=== PATIENT | female | born 1945 | race Caucasian/White ===

== ENCOUNTER 2019-10-07 15:37 | Observation (INO) | payer MEDICARE ==
[2019-10-07 17:32] VITALS: BMI 28.9
[2019-10-07] MEDS ORDERED: Nitroglycerin 0.4 MG TAB (25 Tab Bottle) PO PRN (18:47)
[2019-10-07] MEDS ORDERED: Acetaminophen 325 MG TAB PO PRN (18:52)
[2019-10-07] MEDS ORDERED: Acetaminophen 650 MG Suppository PR PRN (18:52)
[2019-10-07] MEDS ORDERED: hydrALAZINE 20 MG/ML VIAL SLOW IVP PRN (19:10)
[2019-10-07 19:43] LABS: #Basophils 0.1 thou/uL (0.0-0.2); #Eosinphils 0.1 thou/uL (0.0-0.7); #Monocytes 0.5 thou/uL (0.11-0.59); #Neutrophils 3.2 thou/uL (1.40-6.50); %Basophils 1.1 % (0.0-1.0); %Eosinophils 1.6 % (0.0-10.0); %Lymphocytes 43.8 % (21.0-51.0); %Monocytes 6.6 % (0.0-10.0); %Neutrophils 46.9 % (42.0-75.0); Hemoglobin 14.2 g/dL (12.0-16.0); Mean Corpuscular HGB CONC 33.8 g/dL (32.0-36.0); Mean Corpuscular Hemoglobin 29.8 pg (27.0-31.0); Mean Corpuscular Volume 88.1 fL (78.0-98.0); Mean Platelet Volume 8.5 fL (7.4-10.4); Platelet Count 289 thou/uL (130-400); RBC Distribution Width 12.7 % (11.5-14.5); Red Blood Cell (RBC) Count 4.76 mill/uL (4.20-5.40); White Blood Cell (WBC) Count 6.8 thou/uL (4.8-10.8)
--- NOTE | 2019-10-07 19:58 | HP ---
TIME OF ASSESSMENT: 1700 hours. CHIEF COMPLAINT: Chest pain. HISTORY OF PRESENT ILLNESS: Ms. Alejo is a 74-year-old woman with past medical history of coronary artery disease, CABG, stents x3, hypertension, and CVA, who presents with complaints of intermittent chest pain for the last 5 to 6 days. The patient states she tends to be exacerbated following activity. This is typically after she has been walking around for some time. She states it has become more frequent, prompting her to contact Dr. Mathis, her wind turbine controls engineer yesterday. He recommended Pepcid. Therefore, she states that she felt he likely thought it was indigestion. However, she had another episode of pain, which she states was more severe, rating it a 7/10 in severity and substernal, lasting a few minutes. The patient states it happened while she was sitting in a chair yesterday evening and does not recall the time of day or how long it lasted. She states it radiated 3 inches to the left and then 2 inches to the right side of her chest before settling. She states it felt almost as if it was spasming. The patient states she had another episode of pain earlier today after walking from her car to the service station to pay the center aisle cashier and then back to her car and then into the pharmacy. She states the pain was less intense and rated a 5/10 in severity again in the center of her chest radiating through to her back. She states it resolved after a few minutes on its own, but she checked her blood pressure and it was elevated in the 150s with a heart rate in the 50s. The patient opted to come into the emergency department and on arrival was noted to be hypertensive with a blood pressure of 201/81. The patient was seen at [facility] [place] in [place] [facility]. She had an EKG done, which showed normal sinus rhythm with no ST changes or T-wave abnormalities. She was seen by Dr. Wolfe who interpreted the EKG. She underwent laboratory studies, which were said to be unremarkable including a troponin that was within normal limits. The troponin was checked at 1421 hours. She was given 81 mg of aspirin x4 tablets. It does not appear she underwent any chest x-ray imaging. However, she was transferred for further workup and monitoring. Of note, the patient states Dr. Mathis had recommended an echo to be done soon, but has not yet been scheduled. She states it has been over a year since her last stress test, but is very concerned about having one done as she is afraid it will induce an TN and therefore wishes to be seen by Dr. Mathis before undergoing any type of stress test. REVIEW OF SYSTEMS: At this present time, the patient states she is pain free. She does report having some associated shortness of breath, however, is a poor historian and unable to state if the shortness of breath is exacerbated by activity. She states she has some level shortness of breath at baseline, but does feel that at times when the pain has come on, strongly it takes away her breath. Reports having a cough for the last couple of days that is nonproductive. Denies any hemoptysis. Denies any lower leg swelling or edema. States she has been choking on her saliva, but denies having any issues with her swallowing or issues with aspiration when eating or drinking. Has not had any recent fevers, chills, or sweats. All other review of systems are negative. PAST MEDICAL HISTORY: 1. Coronary artery disease. 2. Hypertension. 3. Myocardial infarction. PAST SURGICAL HISTORY: 1. CABG. 2. Stents x3. 3. Hysterectomy. FAMILY HISTORY: The patient reports strong family history of heart disease in her father. SOCIAL HISTORY: The patient lives alone and is fully independent, and denies any tobacco use, alcohol consumption, or illicit drug use. PHYSICAL EXAMINATION: GENERAL: The patient appears well developed and well nourished. She is in no acute distress. VITAL SIGNS: Temperature 98.4, pulse 54, respirations 20, O2 saturation 98% on room air, blood pressure 168/102. HEENT: Normocephalic and atraumatic. Pupils are equal, round, and reactive to light. Sclerae without icterus. Oropharynx is clear. NECK: Supple without lymphadenopathy. LUNGS: Clear to auscultation bilaterally without wheezes, rales, or rhonchi. CARDIAC: Regular rate and rhythm without audible murmurs or gallops. No reproducible chest wall tenderness. LUNGS: Notable for crackles at the right lower lung base. ABDOMEN: Soft, nontender, nondistended. Normoactive bowel sounds present. No guarding or rigidity. No renal angle tenderness. EXTREMITIES: No lower leg swelling or edema. NEUROLOGIC: Alert and oriented x3. No neuro deficits on exam. SKIN: Warm and dry. INVESTIGATIONS: As mentioned above in HPI. IMPRESSION AND PLAN: Ms. Alejo is a pleasant 74-year-old woman, presenting with chest pain, who has multiple risk factors including extensive cardiac history as mentioned above in history of present illness. She has had coronary artery bypass graft as well as stents x3 and a myocardial infarction in her late 30s. The patient is known to Dr. Mathis and has been admitted for the followin. Atypical/persistent chest pain. The patient underwent EKG at outside facility, which was read as normal. We will repeat an EKG here as I do not see an EKG in her chart. We will continue to trend troponins. We will obtain a stat troponin at this present time. We will check lipid panel with morning labs. We will check CBC, CMP, magnesium, and TSH as well. We do not have results from the laboratory studies done outside. We will also obtain a baseline chest x-ray, which does not appear to have been done. We will add on a BNP as well. Consult placed to Dr. Mathis per the patient's request as she does not wish to undergo any stress test until cleared by him. Echocardiogram also requested as the patient states she is due for one soon and has not scheduled that yet. 2. Cough. The patient with excessive cough during her examination and states she has had a significant cough for the last 2 days, which is dry. We will follow up on results of the chest x-ray and as mentioned above, did have some crackles at the right lung base. BMP added. The patient does take Lasix at home and has no lower extremity edema at present. She will be kept n.p.o. after midnight. Awaiting Cardiology recommendations in the event that she does undergo a stress test or catheterization. We will plan to give very gentle hydration. We will hold IV fluids pending results of BMP and chest x-ray. Echocardiogram has been ordered. 3. Hypertension. The patient with elevated blood pressure outside ED. Currently, 168 systolic. We will resume antihypertensives once verified and continue to monitor blood pressure. 4. Gastrointestinal prophylaxis with famotidine. 5. Deep venous thrombosis prophylaxis. The patient is ambulatory. Mechanical sequential compression devices ordered. 6. Code status full. Surrogate decision maker is her son, Ruben Sevilla. The patient's case discussed with attending who agrees with plan of care as described above. Job ID: [id number]
[2019-10-07 20:09] LABS: ALT (SGPT) 15 U/L (8-55); AST (SGOT) 18 U/L (5-34); Albumin 4.3 g/dL (3.4-4.8); Alkaline Phosphatase 99 U/L (40-110); Anion Gap 13 mmol/L (10-20); BUN (Urea Nitrogen) 12 mg/dL (9.8-20.1); Bilirubin, Total 0.3 mg/dL (0.2-1.2); Calc. Creatinine Clearance 65 mL/min (70-130); Calcium 9.4 mg/dL (7.8-10.44); Carbon Dioxide 28 mmol/L (23-31); Chloride 103 mmol/L (98-107); Estimated GFR-MDRD 55; Globulin 2.9 g/dL (2.4-3.5); Glucose 140 mg/dL (83-110); Lipase 56 U/L (8-78); Magnesium 2.3 mg/dL (1.6-2.6); Potassium 4.4 mmol/L (3.5-5.1); Protein, Total 7.2 g/dL (6.0-8.3); Sodium 140 mmol/L (136-145)
--- NOTE | 2019-10-07 20:30 | RAD ---
TWO VIEW CHEST: 10/07/19 HISTORY: Chest pain, shortness of breath. COMPARISON: 09/09/13. The lungs appear well aerated and clear. No infiltrate or vascular congestion. Heart size is within n ormal range. Postop sternotomy changes are noted. Osseous structures are unremarkable. IMPRESSION: No acute findings. POS: [facility]
[2019-10-07] MEDS: Famotidine 20 MG TAB PO SCH (20:45)
[2019-10-07] MEDS ORDERED: Famotidine/PF 20 mg/2ml Vial SLOW IVP SCH (21:00)
[2019-10-07] MEDS: Sodium Chloride 0.9% 1,000 ML IV SCH (23:35)
[2019-10-08 04:48] LABS: #Basophils 0.1 thou/uL (0.0-0.2); #Eosinphils 0.1 thou/uL (0.0-0.7); #Lymphocytes 2.8 thou/uL (1.20-3.40); #Monocytes 0.6 thou/uL (0.11-0.59); %Basophils 0.9 % (0.0-1.0); %Eosinophils 1.7 % (0.0-10.0); %Lymphocytes 43.2 % (21.0-51.0); %Monocytes 8.3 % (0.0-10.0); %Neutrophils 45.9 % (42.0-75.0); Hemoglobin 13.7 g/dL (12.0-16.0); Mean Corpuscular HGB CONC 33.2 g/dL (32.0-36.0); Mean Corpuscular Hemoglobin 29.6 pg (27.0-31.0); Mean Platelet Volume 8.7 fL (7.4-10.4); Platelet Count 276 thou/uL (130-400); RBC Distribution Width 12.7 % (11.5-14.5); Red Blood Cell (RBC) Count 4.64 mill/uL (4.20-5.40); White Blood Cell (WBC) Count 6.6 thou/uL (4.8-10.8)
[2019-10-08 05:16] LABS: Anion Gap 12 mmol/L (10-20); BUN (Urea Nitrogen) 18 mg/dL (9.8-20.1); Calc. Creatinine Clearance 73 mL/min (70-130); Carbon Dioxide 27 mmol/L (23-31); Cardiac Risk 6.7 (Less than 4.5); Chloride 106 mmol/L (98-107); Cholesterol 234 mg/dl (< 200 Desired); Estimated GFR-MDRD 61; Glucose 100 mg/dL (83-110); HDL Cholesterol 35 mg/dL (>60 Neg Risk); LDL Cholesterol, Calculated 150 mg/dL; Potassium 4.2 mmol/L (3.5-5.1); Sodium 141 mmol/L (136-145); Triglycerides 243 mg/dL (Less than 150)
[2019-10-08] MEDS: Famotidine 20 MG TAB PO SCH (08:35)
[2019-10-08 13:06] VITALS: TEMP 97.6
--- NOTE | 2019-10-08 13:07 | NM ---
EXAM: Nuclear medicine cardiac perfusion examination with ejection fraction HISTORY: Chest pain TECHNIQUE: Rest images: 10.2 mCi technetium 99m sestamibi Stress images: 32.2 mCi of technetium 9M sestamibi; Adenosine COMPARISON: None FINDINGS: Tomographic images: No fixed or reversible perfusion defects. Gated images: Normal wall motion and ejection fraction of 67%. EDV: 76 mL LHR: 0.4 TID: 1.2 IMPRESSION: No evidence of ischemia
[2019-10-08] MEDS ORDERED: Furosemide 40 MG TAB PO PRN (14:03)
[2019-10-08 14:26] VITALS: BP 169/74
[2019-10-08] MEDS: Sodium Chloride 0.9% 1,000 ML IV SCH (14:34)
[2019-10-08] MEDS ORDERED: ADENOSINE 60 MG/20 ML VIAL ONE (15:00)
--- NOTE | 2019-10-08 15:08 | DIS ---
DATE OF ADMISSION: 10/07/2019 DATE OF DISCHARGE: 10/08/2019 PRIMARY CARE PHYSICIAN: She denies having one. DISPOSITION: Discharged home. FINAL DIAGNOSES: Noncardiac chest pain, coronary artery disease, hypertension, dyslipidemia. DISCHARGE MEDICATIONS: 1. Pepcid complete one a day. 2. Nitroglycerin 0.4 mg sublingual q.5 minutes p.r.n. 3. Diovan 80 mg a day. 4. Plavix 75 mg a day. 5. Aspirin 325 mg a day. 6. Lasix 40 mg a day. . ALLERGIES: TO BENADRYL, BELLERGAL, CORTISONE, ERGOTAMINE, HYDROCORTISONE, PHENOBARBITAL, PROPOXYPHENE. DIET: Heart healthy. CODE STATUS: Full. PENDING AT THE TIME OF DISCHARGE: Nothing. HOSPITAL COURSE: The patient admitted, reports of frequent pains in her chest. She went to [facility]. She had a normal EKG. She was sent here for further testing. Her CBC was normal x2. Comp metabolic profile normal, except for a blood sugar 140. Cardiac enzymes normal. Nuclear Medicine stress test showed no evidence for ischemia. Cholesterol studies were abnormal with a cholesterol 234, LDL 150, HDL 35. She is not on statin, states she has profound muscle weakness with statins. Results of her stress tests were related to Dr. Mathis. He had echocardiogram done, which by the way is pending at the time of discharge. He has stated that he will arrange followup with her. She has been advised to see a PCP for followup in 3 days. Job ID: [id number] [facility]
[2019-10-09] MEDS ORDERED: Aspirin 325 mg Enteric Coated Tablet PO SCH (09:00)
[2019-10-09] MEDS ORDERED: Valsartan 80 MG TAB PO SCH (09:00)
[2019-10-09] MEDS ORDERED: Clopidogrel Bisulfate 75 MG TAB PO SCH (09:00)
== END 2019-10-08 15:19 | disposition home or self-care (01) ==
LOC: 2SW 15:37
PROVIDERS: ADMIT Emergency Medicine; ATTEND Emergency Medicine
DX: R07.89 Other chest pain (principal); I25.10 Atherosclerotic heart disease of native coronary artery without angina pectoris; I10 Essential (primary) hypertension; E78.5 Hyperlipidemia, unspecified; I25.2 Old myocardial infarction; R05 Cough; Z86.73 Personal history of transient ischemic attack (TIA), and cerebral infarction without residual deficits; Z79.02 Long term (current) use of antithrombotics/antiplatelets; Z79.82 Long term (current) use of aspirin; Z79.899 Other long term (current) drug therapy; Z88.5 Allergy status to narcotic agent; Z88.8 Allergy status to other drugs, medicaments and biological substances; Z95.1 Presence of aortocoronary bypass graft; Z95.5 Presence of coronary angioplasty implant and graft
CPT/HCPCS: 71046; 78452; 80048; 80061; 83690; 83735; 83880; 84484 ×2; 85025; 93017; 93306; 94760 ×2; 96360; 96361; 97139; A9500; G0378 ×2; 36415; 80053; 84443; J0153

== ENCOUNTER 2019-10-13 02:42 | Observation (INO) | payer MEDICARE ==
[2019-10-13 03:13] LABS: #Basophils 0.1 thou/uL (0.0-0.2); #Eosinphils 0.1 thou/uL (0.0-0.7); #Lymphocytes 3.2 thou/uL (1.20-3.40); #Monocytes 0.8 thou/uL (0.11-0.59); #Neutrophils 5.5 thou/uL (1.40-6.50); %Basophils 1.1 % (0.0-1.0); %Eosinophils 0.6 % (0.0-10.0); %Lymphocytes 33.1 % (21.0-51.0); %Monocytes 8.6 % (0.0-10.0); %Neutrophils 56.6 % (42.0-75.0); Hemoglobin 14.7 g/dL (12.0-16.0); Mean Corpuscular HGB CONC 32.6 g/dL (32.0-36.0); Mean Corpuscular Hemoglobin 28.9 pg (27.0-31.0); Mean Corpuscular Volume 88.6 fL (78.0-98.0); Mean Platelet Volume 8.6 fL (7.4-10.4); Platelet Count 303 thou/uL (130-400); RBC Distribution Width 12.8 % (11.5-14.5); White Blood Cell (WBC) Count 9.8 thou/uL (4.8-10.8)
[2019-10-13 03:26] LABS: ALT (SGPT) 17 U/L (8-55); AST (SGOT) 19 U/L (5-34); Albumin 4.4 g/dL (3.4-4.8); Alkaline Phosphatase 92 U/L (40-110); Anion Gap 18 mmol/L (10-20); BUN (Urea Nitrogen) 16 mg/dL (9.8-20.1); Bilirubin, Total 0.7 mg/dL (0.2-1.2); Calc. Creatinine Clearance 0 mL/min (70-130); Calcium 9.6 mg/dL (7.8-10.44); Carbon Dioxide 22 mmol/L (23-31); Chloride 104 mmol/L (98-107); Estimated GFR-MDRD 51; Globulin 2.8 g/dL (2.4-3.5); Glucose 136 mg/dL (83-110); Potassium 3.5 mmol/L (3.5-5.1); Protein, Total 7.2 g/dL (6.0-8.3); Sodium 140 mmol/L (136-145)
[2019-10-13 03:47] LABS: CKMB 1.6 ng/mL (0-6.6)
[2019-10-13] MEDS ORDERED: Nitroglycerin 0.4 MG TAB (25 Tab Bottle) PO PRN (04:54)
[2019-10-13] MEDS ORDERED: Calcium Carbonate 500 MG ChewTAB PO PRN (04:59)
[2019-10-13] MEDS ORDERED: Senokot S 8.6-50 MG TAB PO PRN (04:59)
[2019-10-13] MEDS ORDERED: Sodium Chloride 0.9% 1,000 ML IV SCH ×2 (05:00→15:30)
[2019-10-13] MEDS ORDERED: cloNIDine 0.1 MG TAB PO PRN (05:05)
--- NOTE | 2019-10-13 05:35 | HP ---
PRIMARY CARE PHYSICIAN: Dr. Eyal Arteaga. PRIMARY MUSEUM LIBRARIAN: Dr. Mathis. CHIEF COMPLAINT: Chest discomfort. HISTORY OF PRESENT ILLNESS: The patient is a 74-year-old female with coronary artery disease, status post coronary artery bypass grafting and stent placement in the past; hypertension; and dyslipidemia with recent negative stress test, presented to the emergency room with chest discomfort. The chest discomfort started around 1:00 a.m. It was precordial, moderate in intensity without any radiation. The pain woke the patient from sleep. She had associated nausea along with diaphoresis and lightheadedness. She denies any palpitations or syncope. No recent immobilization or travel reported. No cough, shortness of breath, or wheezing reported. The pain improved after a sublingual nitroglycerin. PAST MEDICAL HISTORY: 1. Coronary artery disease, status post CABG as well as stent placement. 2. Hypertension. 3. Hyperlipidemia. 4. History of CVA. PAST SURGICAL HISTORY: 1. Coronary artery bypass grafting. 2. Coronary stent placement. 3. Hysterectomy. ALLERGIES: THE PATIENT IS ALLERGIC TO MULTIPLE MEDICATIONS INCLUDING BENADRYL, CORTISONE, ERGOT, BELLADONNA, AND PHENOBARBITAL. CURRENT HOME MEDICATIONS: 1. Diovan 80 mg daily. 2. Sublingual nitroglycerin as needed. 3. Lasix as needed. 4. Pepcid as needed. 5. Plavix 75 mg daily. 6. Aspirin 325 mg daily. SOCIAL HISTORY: The patient lives at home alone. She is independent of activities of daily living. She is full code, makes her own decision with the help of her family. FAMILY HISTORY: Positive for heart disease. REVIEW OF SYSTEMS: All other review of systems were reviewed and were found negative. PHYSICAL EXAMINATION: VITAL SIGNS: Temperature 98, respirations of 20, pulse rate of 57, blood pressure of 112/83 with O2 saturation of 96% on room air. GENERAL: A 74-year-old female, in no apparent distress. Chest discomfort improved. HEENT: Head, atraumatic and normocephalic. Sclerae anicteric. Moist mucous membranes. No oral lesion. NECK: Supple. No JVD appreciated. No carotid bruit. LUNGS: Clear to auscultation bilaterally. No wheezing, rales, or rhonchi. HEART: S1 and S2 present. Regular rate and rhythm. No rubs or gallops. No significant reproducible chest wall tenderness. ABDOMEN: Soft, nontender. Bowel sounds present. No rebound or guarding. EXTREMITIES: No edema or calf tenderness. NEUROLOGY: Grossly nonfocal. Moves all 4 extremities. PSYCHIATRY: Alert, awake, and oriented x3. SKIN: Warm and dry. LYMPH NODES: No palpable lymph nodes in the neck. PERIPHERAL VASCULAR: Radial pulses palpable bilaterally. MUSCULOSKELETAL: No joint swelling or tenderness. LABORATORY FINDINGS: WBC of 9.8 with hemoglobin 14.7, hematocrit 45.2, and platelet count of 303. Chemistry showed sodium 140, potassium 3.5, chloride of 104, bicarb 22, BUN of 16, and creatinine 1.05. LFTs in normal range. Troponin 0.068. EKG by my review showed sinus rhythm with nonspecific ST-T wave changes. She had T-wave inversions from V2 through V6, which had been present in the past per ER physician. IMAGING STUDIES: Chest x-ray by my review was negative for infiltrate or edema. IMPRESSION: 1. Chest discomfort, rule out acute coronary syndrome. 2. Coronary artery disease, status post coronary artery bypass grafting and stents in the past. 3. Chronic kidney disease, stage 3. 4. Hypertension. 5. History of cerebrovascular accident. PLAN: 1. The patient will be monitored in the telemetry unit as observation. We will continue aspirin and Plavix. Consult Cardiology, Dr. Mathis. The patient will be kept n.p.o. Sublingual nitroglycerin as needed. 2. The patient understands the above plan of care. Home medications will be restarted. Telemetry monitoring. Vital signs q.4. Job ID: [id number]
[2019-10-13 06:16] VITALS: BMI 28.0
[2019-10-13 07:17] LABS: CKMB 1.5 ng/mL (0-6.6)
--- NOTE | 2019-10-13 07:44 | RAD ---
EXAM: CHEST ONE VIEW HISTORY: Chest pain COMPARISON: 10/07/2019 FINDINGS: Postsurgical changes related to CABG are again noted. The cardiac silhouette and pulmonary vasculatur e are within normal limits. Curvilinear density is seen at the medial right lung base which may represent minimal scarring versus atelectasis. The lungs are otherwise clear. Degenerative changes ar e again seen in the spine. IMPRESSION: No acute cardiopulmonary process.
[2019-10-13] MEDS ORDERED: Aspirin 325 mg Enteric Coated Tablet PO SCH (09:00)
[2019-10-13] MEDS ORDERED: Clopidogrel Bisulfate 75 MG TAB PO SCH (09:00)
[2019-10-13] MEDS ORDERED: Heparin (Artline) 1,000 ML ONE ×2 (10:06→13:17)
[2019-10-13] MEDS ORDERED: Lidocaine 1% (PF) 30 ML VIAL ONE ×2 (10:16→13:17)
[2019-10-13] MEDS: Famotidine 20 MG TAB PO SCH (10:46)
[2019-10-13] MEDS: Acetaminophen 325 MG TAB PO PRN ×3 (11:33→22:50)
[2019-10-13] MEDS ORDERED: Iopamidol 370 76% 100 ML VIAL ONE (12:03)
[2019-10-13] MEDS ORDERED: Iopamidol 370 76% 50 ML VIAL FS ONE (12:03)
[2019-10-13] MEDS: Valsartan 80 MG TAB PO SCH (13:43)
[2019-10-13] MEDS ORDERED: Clopidogrel Bisulfate 300 MG TAB ONE (13:50)
[2019-10-13] MEDS ORDERED: Heparin 10,000 UNITS/1 ML VIAL ONE (13:50)
[2019-10-13] MEDS ORDERED: Midazolam HCl 2 mg/2 ml Vial ONE (13:50)
[2019-10-13] MEDS ORDERED: Fentanyl 100 MCG/2 ML VIAL ONE (13:51)
--- NOTE | 2019-10-13 13:51 | CON ---
DATE OF CONSULTATION: REASON FOR CONSULTATION: Recurrent chest pain. HISTORY OF PRESENT ILLNESS: Ms. Alejo returns to the hospital after recent admission and discharge. She had recurrent chest pain with near-syncope. She states she woke with severe chest pain. She underwent a noninvasive stress study recently and it was negative for ischemia. She had undergone multiple stress studies in the past, that had been negative. The patient has a previous history of status post bypass surgery with JOLLEY to the LAD, saphenous vein graft to an OM, saphenous vein graft to a diagonal, and saphenous vein graft to a right coronary artery. She underwent successful stent placement to the LAD ( ) in 2011. PAST MEDICAL HISTORY: Hypertension, hyperlipidemia, CVA, and CAD status post bypass surgery. For further history, please refer to previous note. PHYSICAL EXAMINATION: GENERAL: Patient is a pleasant female, who is in no acute distress. The patient appears their stated age. VITAL SIGNS: Blood pressure 110/70 NEUROLOGIC: The patient is alert and oriented x3 with no focal neurologic deficits. HEENT: Sclerae without icterus. Mouth has moist mucous membranes with normal pallor. NECK: No JVD. Carotid upstroke brisk. No bruits bilaterally. LUNGS: Clear to auscultation with unlabored respirations. BACK: No scoliosis or kyphosis. CARDIAC: Regular rate and rhythm with normal S1 and S2. No S3 or S4 noted. No significant rubs, murmurs, thrills, or gallops noted throughout the precordium. PMI is not displaced. There is no parasternal heave. ABDOMEN: Soft, nontender, nondistended. No peritoneal signs present. No hepatosplenomegaly. No abnormal striae. EXTREMITIES: 2+ femoral and 2+ dorsalis pedis pulses. No cyanosis, clubbing, or edema. SKIN: No gross abnormalities. PERTINENT LABORATORY DATA: Hemoglobin 14.7. Creatinine 1.02. Peak troponin 0.068. IMPRESSION: 1. Recurrent chest pain. 2. Coronary artery disease, status post bypass surgery. RECOMMENDATIONS: Ms. Alejo continues to have pain despite a recent normal stress study. Discussed medical therapy versus proceeding coronary angiography. The patient has opted for proceeding with coronary angiography. I discussed procedure in full detail with Ms. Alejo. Risks include, but not limited to the following. , stroke, OR, need for emergency surgery, loss of limb, bleeding, and infection, as well as a reaction to the dye causing kidney failure and needing long-term dialysis. I also discussed the risks of PCI to include all of the above including coronary dissection and perforation in addition to acute stent thrombosis and restenosis. All questions were answered. Given the above, the patient agreed to proceed with above procedure. We will proceed with drug-coated stent placement if needed. There are no contraindications. Job ID: [id number]
[2019-10-13] MEDS ORDERED: Nitroglycerin 4.9 GM Bottle ONE (13:55)
[2019-10-13] MEDS ORDERED: Nitroglycerin 100MG/250ML BOT 250 ML ONE (13:56)
[2019-10-13] MEDS ORDERED: hydrALAZINE 20 MG/ML VIAL ONE (13:56)
[2019-10-13] MEDS ORDERED: Heparin (Artline) 500 ML ONE (14:14)
[2019-10-14 04:59] LABS: #Eosinphils 0.1 thou/uL (0.0-0.7); #Monocytes 0.8 thou/uL (0.11-0.59); #Neutrophils 4.5 thou/uL (1.40-6.50); %Basophils 0.5 % (0.0-1.0); %Eosinophils 1.8 % (0.0-10.0); %Lymphocytes 26.8 % (21.0-51.0); %Monocytes 10.5 % (0.0-10.0); %Neutrophils 60.3 % (42.0-75.0); Hemoglobin 12.6 g/dL (12.0-16.0); Mean Corpuscular HGB CONC 32.4 g/dL (32.0-36.0); Mean Corpuscular Hemoglobin 28.7 pg (27.0-31.0); Mean Corpuscular Volume 88.4 fL (78.0-98.0); Mean Platelet Volume 8.7 fL (7.4-10.4); Platelet Count 273 thou/uL (130-400); RBC Distribution Width 12.8 % (11.5-14.5); Red Blood Cell (RBC) Count 4.41 mill/uL (4.20-5.40); White Blood Cell (WBC) Count 7.5 thou/uL (4.8-10.8)
[2019-10-14 05:20] LABS: ALT (SGPT) 12 U/L (8-55); AST (SGOT) 16 U/L (5-34); Albumin 3.5 g/dL (3.4-4.8); Alkaline Phosphatase 80 U/L (40-110); Anion Gap 11 mmol/L (10-20); BUN (Urea Nitrogen) 13 mg/dL (9.8-20.1); Bilirubin, Total 0.4 mg/dL (0.2-1.2); Calc. Creatinine Clearance 78 mL/min (70-130); Calcium 8.3 mg/dL (7.8-10.44); Carbon Dioxide 24 mmol/L (23-31); Chloride 108 mmol/L (98-107); Estimated GFR-MDRD 68; Globulin 2.2 g/dL (2.4-3.5); Glucose 98 mg/dL (83-110); Potassium 3.8 mmol/L (3.5-5.1); Protein, Total 5.7 g/dL (6.0-8.3); Sodium 139 mmol/L (136-145)
[2019-10-14] MEDS: Valsartan 80 MG TAB PO SCH (07:56)
[2019-10-14] MEDS: Famotidine 20 MG TAB PO SCH (07:56)
[2019-10-14] MEDS ORDERED: Clopidogrel Bisulfate 75 MG TAB PO SCH (09:00)
[2019-10-14] MEDS ORDERED: Aspirin Chewable 81 MG TAB PO SCH (09:00)
--- NOTE | 2019-10-14 09:31 | PDOC.HOSPP ---
- Subjective Encounter Date: 10/14/19 Encounter Time: 12:00 Subjective: Patient feeling well after cath yesterday. No chest pain. No SOB. Ready to go home. - Objective Vital Signs & Weight: Vital Signs (12 hours) Temp Pulse Resp BP Pulse Ox 10/14/19 08:04 94 L 10/14/19 08:00 97.6 F 59 L 15 142/65 H 96 10/14/19 04:21 98.3 F 80 18 114/57 L 94 L 10/13/19 22:30 72 16 114/53 L 95 Weight Weight 178 lb I&O: 10/13/19 10/14/19 10/15/19 06:59 06:59 06:59 Intake Total 811 Output Total 900 Balance -89 Result Diagrams: 10/14/19 04:29 10/14/19 04:29 Hospitalist ROS - Review of Systems Constitutional: denies: fever, chills Respiratory: denies: cough, shortness of breath Cardiovascular: denies: chest pain, palpitations Gastrointestinal: denies: nausea, vomiting, abdominal pain - Medication Medications: Active Medications Generic Name Dose Route Start Last Admin Trade Name Freq PRN Reason Stop Dose Admin Acetaminophen 650 mg 10/13/19 04:59 10/13/19 22:50 Tylenol PO 650 mg Q4H PRN Administration Headache/Fever/Mild Pain (1-3) Clopidogrel Bisulfate 75 mg 10/14/19 09:00 10/14/19 07:56 Plavix PO 75 mg DAILY ADRYAN Administration Famotidine 20 mg 10/13/19 09:00 10/14/19 07:56 Pepcid PO 20 mg 0900 ADRYAN Administration Valsartan 80 mg 10/13/19 09:00 10/14/19 07:56 Diovan PO 80 mg DAILY ADRYAN Administration - Exam General Appearance: NAD, awake alert ENT: moist mucosa Heart: RRR, no murmur, no gallops, no rubs Respiratory: CTAB, no wheezes, no rales, no ronchi Gastrointestinal: soft, non-tender, non-distended, normal bowel sounds Psychiatric: normal affect, normal behavior, A&O x 3 Hosp A/P (1) Chest pain Code(s): R07.9 - CHEST PAIN, UNSPECIFIED Status: Acute (2) Coronary Artery Disease Status: Active (3) Chronic kidney disease, stage 2 (mild) Code(s): N18.2 - CHRONIC KIDNEY DISEASE, STAGE 2 (MILD) Status: Chronic (4) Hyperlipidemia Code(s): E78.5 - HYPERLIPIDEMIA, UNSPECIFIED Status: Chronic (5) Hypertension Code(s): I10 - ESSENTIAL (PRIMARY) HYPERTENSION Status: Chronic Qualifiers: Hypertension type: essential hypertension Qualified Code(s): I10 - Essential (primary) hypertension - Plan Cath with stent to ostium of saphenous graft yesterday. Meds adjusted by Dr. Mathis this AM and cleared to go home.
--- NOTE | 2019-10-14 10:45 | CON ---
DATE OF CONSULTATION: 10/14/2019 SUBJECTIVE: Ms. Alejo is doing well. No current complaints. OBJECTIVE: VITAL SIGNS: Blood pressure 142/65, pulse 59, and temperature 97.6. LUNGS: Clear to auscultation. HEART: Regular rate and rhythm. ABDOMEN: Soft, nontender, nondistended. EXTREMITIES: No edema. PERTINENT LABORATORY DATA: None. IMPRESSION: 1. Severe coronary artery disease. 2. Angina. 3. Status post bypass surgery. 4. Status post stent placement. RECOMMENDATIONS: Ms. Alejo is currently doing much better after recent stent placement to the ostium of the saphenous vein graft to the OM branch. She had a 90% lesion present. RECOMMENDATIONS: Include the followin. Aspirin 81 q.a.m. 2. Plavix 75 q.a.m. 3. Losartan 80 daily. 4. Coreg 3.125 one p.o. b.i.d. 5. Lipitor 40 at bedtime. Otherwise, I have no recommendations. Okay to discharge from my standpoint. Job ID: [id number]
[2019-10-14 11:43] VITALS: BP 150/65; TEMP 98.5
[2019-10-14] MEDS ORDERED: Aspirin 81 mg Enteric Coated Tablet PO SCH (12:30)
[2019-10-14] MEDS ORDERED: Carvedilol 3.125 MG TAB PO SCH (21:00)
[2019-10-14] MEDS ORDERED: Atorvastatin Calcium 40 MG TAB PO SCH (21:00)
--- NOTE | 2019-10-15 11:41 | DIS ---
DATE OF ADMISSION: 10/13/2019 DATE OF DISCHARGE: 10/14/2019 PRIMARY CARE PHYSICIAN: Dr. Eyal Arteaga. PRIMARY SURVEY RESEARCH CENTER DIRECTOR: Dr. Mathis. REASON FOR ADMISSION: Chest pain. DIAGNOSES AT DISCHARGE: 1. Angina, resolved. 2. Coronary artery disease, status post stent placement. 3. Chronic kidney disease, stage II. 4. Hyperlipidemia. 5. Hypertension. PROCEDURE: Cardiac catheterization with stent placement. CONSULTATIONS: Cardiology, Dr. Mathis. SUMMARY OF HOSPITAL COURSE: This is a 74-year-old female with known coronary artery disease, status post coronary bypass grafting and stent placement in the past. She came in with chest discomfort that woke her up from sleep, associated with nausea, diaphoresis, and lightheadedness. The patient had indeterminate troponins and no acute changes on the EKG. She was put in observation. Dr. Mathis was consulted. He determined that this was likely a cardiac angina in origin and then took her back to catheterization. There was a significant stenosis of the ostium of the saphenous graft which was dilated and stented. The patient did well post catheterization. Today, she was without symptoms and feeling much better, eager to go home. DISCHARGE MANAGEMENT: Discharged home. ACTIVITY: As tolerated. DIET: Healthy heart with low-sodium diet. FOLLOWUP: Follow up with Dr. Mathis as directed and with Dr. Arteaga as scheduled later this week. DISCHARGE MEDICATIONS: 1. Aspirin 81 mg daily, 30 tablets dispensed. 2. Atorvastatin 40 mg at night, 30 tablets dispensed. 3. Carvedilol 3.125 mg twice a day, 60 tablets dispensed. 4. Clopidogrel 75 mg daily. 5. Pepcid Complete one tablet daily. 6. Furosemide 40 mg daily as needed for swelling. 7. Nitroglycerin as needed for chest pain. 8. Valsartan 80 mg daily. Job ID: [id number]
== END 2019-10-14 13:30 | disposition home or self-care (01) ==
LOC: ERS 02:42 → 2SW 04:00
PROVIDERS: ADMIT Internal Medicine; ATTEND Internal Medicine
DX: I25.119 Atherosclerotic heart disease of native coronary artery with unspecified angina pectoris (principal); I12.9 Hypertensive chronic kidney disease with stage 1 through stage 4 chronic kidney disease, or unspecified chronic kidney disease; N18.3 Chronic kidney disease, stage 3 (moderate); E78.5 Hyperlipidemia, unspecified; Z79.82 Long term (current) use of aspirin; Z79.899 Other long term (current) drug therapy; Z86.73 Personal history of transient ischemic attack (TIA), and cerebral infarction without residual deficits; Z88.8 Allergy status to other drugs, medicaments and biological substances; Z95.1 Presence of aortocoronary bypass graft; Z95.5 Presence of coronary angioplasty implant and graft
CPT/HCPCS: 71045; 76942; 80053 ×2; 82553; 83735; 84484 ×2; 85025 ×2; 85347 ×2; 93005 ×2; 93454; 93798; 96360; 96361; 99285; C1725; C1769 ×2; C1874; C1887; C9600; G0378 ×3; 36415; 92928; 93010; 99152; 99153; J0360; J1644; J2001; J2250; J3010; Q9967

== ENCOUNTER 2019-10-24 09:38 | Outpatient (CLI) | payer MEDICARE ==
--- NOTE | 2019-10-24 10:45 | RAD ---
RIGHT FOOT THREE VIEWS: History: Fall with injury to foot. Right great toe pain. FINDINGS: Spurring from the posterior and plantar calcaneus is noted. Mild degenerative change in the intertars al and tarsal metatarsal joints. Moderate DJD at the first MTP joint. No fracture acute abnormality identified. IMPRESSION: Degenerative changes as described. No evidence of acute fracture. POS: [facility]
== END 2019-10-24 09:39 | disposition home or self-care (01) ==
LOC: SCSRAD 09:38
PROVIDERS: ATTEND Nurse Practitioner Family
DX: M79.674 Pain in right toe(s) (principal); M19.071 Primary osteoarthritis, right ankle and foot

== ENCOUNTER 2020-03-02 20:36 | Emergency (ER) | payer MEDICARE ==
[2020-03-02] MEDS ORDERED: Promethazine 25 MG TAB ONE (21:12)
[2020-03-02] MEDS ORDERED: traMADol HCl 50 MG TAB ONE (21:12)
== END 2020-03-02 23:15 | disposition home or self-care (01) ==
LOC: ERS 20:36
DX: I10 Essential (primary) hypertension (principal); R51 Headache; R11.0 Nausea; I25.10 Atherosclerotic heart disease of native coronary artery without angina pectoris; Z86.73 Personal history of transient ischemic attack (TIA), and cerebral infarction without residual deficits; F32.9 Major depressive disorder, single episode, unspecified; Z79.899 Other long term (current) drug therapy; Z79.82 Long term (current) use of aspirin
CPT/HCPCS: 99283; Q0169

== ENCOUNTER 2021-04-14 05:07 | Emergency (ER) | payer MEDICARE ==
[2021-04-14 05:42] LABS: #Eosinphils 0.2 thou/uL (0.0-0.7); #Lymphocytes 2.6 thou/uL (1.20-3.40); #Monocytes 0.7 thou/uL (0.11-0.59); #Neutrophils 3.7 thou/uL (1.40-6.50); %Basophils 0.1 % (0.0-1.0); %Eosinophils 2.8 % (0.0-10.0); %Lymphocytes 36.7 % (21.0-51.0); %Monocytes 9.3 % (0.0-10.0); %Neutrophils 51.1 % (42.0-75.0); Hemoglobin 13.5 g/dL (12.0-16.0); Mean Corpuscular Hemoglobin 29.9 pg (27.0-31.0); Mean Corpuscular Volume 90.5 fL (78.0-98.0); Mean Platelet Volume 8.6 fL (7.4-10.4); Platelet Count 293 thou/uL (130-400); RBC Distribution Width 12.8 % (11.5-14.5); Red Blood Cell (RBC) Count 4.52 mill/uL (4.20-5.40); White Blood Cell (WBC) Count 7.2 thou/uL (4.8-10.8)
[2021-04-14 06:02] LABS: ALT (SGPT) 15 U/L (8-55); AST (SGOT) 17 U/L (5-34); Albumin 4.2 g/dL (3.4-4.8); Alkaline Phosphatase 92 U/L (40-110); Anion Gap 14 mmol/L (10-20); BUN (Urea Nitrogen) 12 mg/dL (9.8-20.1); Bilirubin, Total 0.5 mg/dL (0.2-1.2); Calc. Creatinine Clearance 0 mL/min (70-130); Calcium 8.8 mg/dL (7.8-10.44); Carbon Dioxide 20 mmol/L (23-31); Chloride 109 mmol/L (98-107); Globulin 2.5 g/dL (2.4-3.5); Glucose 99 mg/dL (83-110); Potassium 4.1 mmol/L (3.5-5.1); Protein, Total 6.7 g/dL (5.8-8.1); Sodium 139 mmol/L (136-145)
[2021-04-14] MEDS ORDERED: Ondansetron ODT 8 MG TAB ONE (06:40)
== END 2021-04-14 07:13 | disposition home or self-care (01) ==
LOC: ERS 05:07
DX: I10 Essential (primary) hypertension (principal); R11.0 Nausea; I25.10 Atherosclerotic heart disease of native coronary artery without angina pectoris; Z79.02 Long term (current) use of antithrombotics/antiplatelets; Z79.899 Other long term (current) drug therapy
CPT/HCPCS: 36415; 71045; 80053; 83690; 84484; 85025; 93005; Q0162

== ENCOUNTER 2021-09-26 07:23 | Observation (INO) | payer MEDICARE ==
[2021-09-26 09:57] LABS: Hemoglobin 15.2 g/dL (12.0-16.0); Mean Corpuscular HGB CONC 31.8 g/dL (32.0-36.0); Mean Corpuscular Hemoglobin 28.6 pg (27.0-31.0); Mean Corpuscular Volume 89.9 fL (78.0-98.0); Mean Platelet Volume 8.6 fL (7.4-10.4); Platelet Count 318 thou/uL (130-400); RBC Distribution Width 13.2 % (11.5-14.5); Red Blood Cell (RBC) Count 5.32 mill/uL (4.20-5.40); White Blood Cell (WBC) Count 14.6 thou/uL (4.8-10.8)
[2021-09-26 10:14] LABS: Band 13 % (5-11); Lymphocytes 8 % (21-51); MDiff Complete? YES; Monocytes 9 % (0-10); Neutrophil 66 % (42-75); Platelet Morphology Comment Appears Adequate; Polychromasia SLIGHT = 2-3 cells (100X) (0-2/hpf); Reactive Lymphocytes 4 % (0-10)
[2021-09-26 13:01] LABS: ALT (SGPT) 17 U/L (8-55); AST (SGOT) 17 U/L (5-34); Albumin 4.2 g/dL (3.4-4.8); Alkaline Phosphatase 115 U/L (40-110); Anion Gap 16 mmol/L (10-20); BUN (Urea Nitrogen) 22 mg/dL (9.8-20.1); Bilirubin, Total 0.4 mg/dL (0.2-1.2); Calc. Creatinine Clearance 0 mL/min (70-130); Calcium 9.5 mg/dL (7.8-10.44); Carbon Dioxide 26 mmol/L (23-31); Chloride 100 mmol/L (98-107); Globulin 3.1 g/dL (2.4-3.5); Glucose 109 mg/dL (83-110); Potassium 4.5 mmol/L (3.5-5.1); Protein, Total 7.3 g/dL (5.8-8.1); Sodium 137 mmol/L (136-145)
[2021-09-26 17:10] LABS: Troponin I Less than 0.010 ng/mL (< 0.028)
[2021-09-26] MEDS ORDERED: Sodium Chloride 0.9% 1,000 ML IV SCH (18:15)
[2021-09-26] MEDS ORDERED: Ondansetron ODT 4 MG TAB PO PRN (18:16)
[2021-09-26] MEDS ORDERED: Acetaminophen 325 MG TAB PO PRN (18:16)
[2021-09-26] MEDS ORDERED: Ondansetron PF 4 MG/2 ML Vial IVP PRN (18:16)
[2021-09-26] MEDS ORDERED: Nitroglycerin 0.4 MG TAB (25 Tab Bottle) SL PRN (18:21)
[2021-09-26 19:43] LABS: CRP (Inflammatory) Less than 0.50 mg/dL (= or < 0.5); Magnesium 2.1 mg/dL (1.6-2.6); Troponin I Less than 0.010 ng/mL (< 0.028)
[2021-09-26 21:01] VITALS: BMI 28.8
[2021-09-26 21:18] LABS: SARS-CoV-2 NAA Rapid Test DETECTED (NotDetected)
[2021-09-26] MEDS ORDERED: Carvedilol 6.25 MG TAB PO SCH (21:19)
[2021-09-27 05:21] LABS: Bilirubin Negative (Negative); Blood, Urine Negative (Negative); Clarity Clear (Clear); Glucose, Urine (Dipstick) Normal (Negative); Ketone, Urine Negative (Negative); Leukocyte Negative Leu/uL (Negative); Nitrite 2+ (Negative); Protein, Urine (Dipstick) Negative (Neg-Trace); RBC/HPF 0-3 HPF (0-3); Specific Gravity, Urine 1.014 (1.002-1.036); Squamous Epithelial 0-3 HPF (0-3); Urobilinogen Normal mg/dL (Less than 2)
[2021-09-27 05:37] LABS: Bacteria/HPF 1+ HPF (None Seen)
[2021-09-27 05:38] LABS: Urine Culture Reflex Yes Yes
[2021-09-27 06:22] LABS: #Basophils 0.1 thou/uL (0.0-0.2); #Eosinphils 0.1 thou/uL (0.0-0.7); #Lymphocytes 2.4 thou/uL (1.20-3.40); #Monocytes 0.7 thou/uL (0.11-0.59); #Neutrophils 4.7 thou/uL (1.40-6.50); %Basophils 0.7 % (0.0-1.0); %Eosinophils 1.4 % (0.0-10.0); %Lymphocytes 30.1 % (21.0-51.0); %Monocytes 9.1 % (0.0-10.0); %Neutrophils 58.7 % (42.0-75.0); Hemoglobin 13.2 g/dL (12.0-16.0); Mean Corpuscular Volume 90.8 fL (78.0-98.0); Mean Platelet Volume 8.2 fL (7.4-10.4); Platelet Count 322 thou/uL (130-400); RBC Distribution Width 12.9 % (11.5-14.5); Red Blood Cell (RBC) Count 4.39 mill/uL (4.20-5.40); White Blood Cell (WBC) Count 7.9 thou/uL (4.8-10.8)
[2021-09-27 06:45] LABS: Anion Gap 15 mmol/L (10-20); BUN (Urea Nitrogen) 21 mg/dL (9.8-20.1); Calc. Creatinine Clearance 70 mL/min (70-130); Calcium 8.9 mg/dL (7.8-10.44); Carbon Dioxide 22 mmol/L (23-31); Chloride 106 mmol/L (98-107); Glucose 102 mg/dL (83-110); Potassium 4.3 mmol/L (3.5-5.1); Sodium 139 mmol/L (136-145)
[2021-09-27] MEDS: Sodium Chloride 0.9% 1,000 ML IV SCH ×2 (10:08→19:31)
[2021-09-27] MEDS: Carvedilol 3.125 MG TAB PO SCH ×2 (10:09→21:03)
[2021-09-27] MEDS: cefTRIAXone\\ROCEPHIN 1 GM in Sodium Chloride 0.9% 100 ML IVPB SCH (10:09)
[2021-09-27] MEDS: Ascorbic Acid 500 mg Chewable Tablet PO SCH (10:09)
[2021-09-27] MEDS: Aspirin 325 MG TAB PO SCH (10:09)
[2021-09-27] MEDS: Clopidogrel Bisulfate 75 MG TAB PO SCH (10:09)
[2021-09-27] MEDS: Zinc Sulfate 220 MG CAP PO SCH (10:10)
[2021-09-27] MEDS: Valsartan 80 MG TAB PO SCH (14:11)
[2021-09-28 08:18] VITALS: TEMP 98.5
[2021-09-28] MEDS: Valsartan 80 MG TAB PO SCH (10:17)
[2021-09-28] MEDS: Aspirin 325 MG TAB PO SCH (10:17)
[2021-09-28] MEDS: Zinc Sulfate 220 MG CAP PO SCH ×2 (10:17→10:18)
[2021-09-28] MEDS: Clopidogrel Bisulfate 75 MG TAB PO SCH (10:18)
[2021-09-28] MEDS: Ascorbic Acid 500 mg Chewable Tablet PO SCH (10:18)
[2021-09-28] MEDS: cefTRIAXone\\ROCEPHIN 1 GM in Sodium Chloride 0.9% 100 ML IVPB SCH (10:18)
[2021-09-28] MEDS: Carvedilol 3.125 MG TAB PO SCH (10:18)
[2021-09-28 15:45] VITALS: BP 128/69
== END 2021-09-28 13:20 | disposition home or self-care (01) ==
LOC: ERS 07:23 → INTOOBSV 15:29 → 2SW 15:29
PROVIDERS: ADMIT Internal Medicine; ATTEND Hospitalist
DX: R07.89 Other chest pain (principal); R55 Syncope and collapse; U07.1 COVID-19; N39.0 Urinary tract infection, site not specified; B96.20 Unspecified Escherichia coli [E. coli] as the cause of diseases classified elsewhere; N17.9 Acute kidney failure, unspecified; I11.9 Hypertensive heart disease without heart failure; E86.0 Dehydration; I25.10 Atherosclerotic heart disease of native coronary artery without angina pectoris; E78.5 Hyperlipidemia, unspecified; I25.2 Old myocardial infarction; I08.3 Combined rheumatic disorders of mitral, aortic and tricuspid valves; Z86.73 Personal history of transient ischemic attack (TIA), and cerebral infarction without residual deficits; Z79.02 Long term (current) use of antithrombotics/antiplatelets; Z79.82 Long term (current) use of aspirin; Z79.899 Other long term (current) drug therapy; Z88.8 Allergy status to other drugs, medicaments and biological substances; Z95.1 Presence of aortocoronary bypass graft; Z95.5 Presence of coronary angioplasty implant and graft
CPT/HCPCS: 71045; 74176; 80048; 80053; 81001; 83735; 83880; 84484 ×2; 85025 ×2; 86140; 87045; 87046; 87077; 87086; 87186; 87324; 87427 ×2; 87449 ×2; 93005; 93306; 96374; 96376; 99285; G0378 ×4; U0002; 36415; J0696; J3490; J7050

== ENCOUNTER 2023-06-14 23:55 | Emergency (ER) | payer MEDICARE ==
[2023-06-15 00:31] LABS: #Eosinphils 0.1 thou/uL (0.0-0.7); #Monocytes 0.8 thou/uL (0.11-0.59); #Neutrophils 4.3 thou/uL (1.40-6.50); %Basophils 0.5 % (0.0-1.0); %Eosinophils 1.2 % (0.0-10.0); %Lymphocytes 39.3 % (21.0-51.0); %Neutrophils 49.7 % (42.0-75.0); Hematocrit 41.5 % (36.0-47.0); Hemoglobin 13.7 g/dL (12.0-16.0); Mean Corpuscular Hemoglobin 29.3 pg (27.0-31.0); Mean Corpuscular Volume 88.7 fl (78.0-98.0); Mean Platelet Volume 10.8 fL (7.4-10.4); Platelet Count 316 10x3/uL (130-400); RBC Distribution Width 14.1 % (11.5-14.5); Red Blood Cell (RBC) Count 4.68 mill/uL (4.20-5.40); White Blood Cell (WBC) Count 8.7 10x3/uL (4.8-10.8)
[2023-06-15 00:56] LABS: ALT (SGPT) 13 U/L (8-55); AST (SGOT) 15 U/L (5-34); Albumin 4.3 g/dL (3.4-4.8); Alkaline Phosphatase 90 U/L (40-110); Anion Gap 13 mmol/L (10-20); BUN (Urea Nitrogen) 11 mg/dL (9.8-20.1); Bilirubin, Total 0.3 mg/dL (0.2-1.2); Calc. Creatinine Clearance 0 mL/min (70-130); Calcium 9.4 mg/dL (7.8-10.44); Carbon Dioxide 24 mmol/L (23-31); Chloride 107 mmol/L (98-107); Estimated GFR 58; Globulin 2.8 g/dL (2.4-3.5); Glucose 109 mg/dL (83-110); Potassium 3.9 mmol/L (3.5-5.1); Protein, Total 7.1 g/dL (5.8-8.1); Sodium 140 mmol/L (136-145)
[2023-06-15 01:01] LABS: Troponin I Less than 0.010 ng/mL (< 0.028)
[2023-06-15 01:08] LABS: Magnesium 2.2 mg/dL (1.6-2.6)
[2023-06-15] MEDS ORDERED: Acetaminophen 500 MG TAB ONE (02:08)
[2023-06-15] MEDS ORDERED: Ondansetron ODT 4 MG TAB ONE (02:08)
[2023-06-15 03:04] LABS: Bilirubin Negative (Negative); Blood, Urine Negative (Negative); CAUTI Indications for Culture Dysuria,urgency,freq; Clarity Clear (Clear); Glucose, Urine (Dipstick) Normal (Negative); Ketone, Urine Negative (Negative); Leukocyte 250 Leu/uL (Negative); Nitrite Negative (Negative); Protein, Urine (Dipstick) Negative (Neg-Trace); RBC/HPF 0-3 HPF (0-3); Squamous Epithelial 0-3 HPF (0-3); Urobilinogen Normal mg/dL (Less than 2); pH, Urine 5.5 (5.0-9.0)
[2023-06-15 03:05] LABS: Bacteria/HPF 1+ HPF (None Seen)
[2023-06-15 03:06] LABS: Urine Culture Reflex No No
== END 2023-06-15 03:07 | disposition home or self-care (01) ==
LOC: ERS 23:55
DX: I10 Essential (primary) hypertension (principal)
CPT/HCPCS: 36415; 80053; 81001; 83735; 83880; 84484; 85025; 93005; Q0162

== ENCOUNTER 2024-02-17 15:10 | Observation (INO) | payer MEDICARE ==
[2024-02-17 16:52] LABS: #Basophils 0.03 10x3/uL (0.0-0.2); %Basophils 0.4 % (0.0-1.0); %Eosinophils 0.7 % (0.0-10.0); %Lymphocytes 25.3 % (21.0-51.0); %Monocytes 10.8 % (0.0-10.0); %Neutrophils 62.4 % (42.0-75.0); Hematocrit 40.8 % (36.0-47.0); Hemoglobin 13.5 g/dL (12.0-16.0); Mean Corpuscular HGB CONC 33.1 g/dL (32.0-36.0); Mean Corpuscular Hemoglobin 29.3 pg (27.0-31.0); Mean Corpuscular Volume 88.7 fL (78.0-98.0); Mean Platelet Volume 11.2 fL (7.4-10.4); Platelet Count 321 10x3/uL (130-400); RBC Distribution Width 14.8 % (11.5-14.5)
[2024-02-17 17:10] LABS: Troponin I Less than 0.010 ng/mL (< 0.028)
[2024-02-17 17:17] LABS: ALT (SGPT) 15 U/L (8-55); AST (SGOT) 17 U/L (5-34); Albumin 3.6 g/dL (3.4-4.8); Alkaline Phosphatase 85 U/L (40-110); Anion Gap 17 mmol/L (10-20); BUN (Urea Nitrogen) 12 mg/dL (9.8-20.1); Bilirubin, Total 0.2 mg/dL (0.2-1.2); Calc. Creatinine Clearance 0 mL/min (70-130); Calcium 9.4 mg/dL (7.8-10.44); Carbon Dioxide 20 mmol/L (23-31); Chloride 107 mmol/L (98-107); Estimated GFR 61; Globulin 2.7 g/dL (2.4-3.5); Glucose 132 mg/dL (83-110); Magnesium 2.2 mg/dL (1.6-2.6); Potassium 3.8 mmol/L (3.5-5.1); Protein, Total 6.3 g/dL (5.8-8.1); Sodium 140 mmol/L (136-145)
[2024-02-17] MEDS ORDERED: Acetaminophen 325 MG TAB ONE (18:38)
[2024-02-17 20:08] LABS: Troponin I 0.032 ng/mL (< 0.028)
[2024-02-17] MEDS ORDERED: Furosemide 40 MG TAB PO PRN (20:10)
[2024-02-17] MEDS ORDERED: Nitroglycerin 0.4 MG TAB (25 Tab Bottle) SL PRN (20:10)
[2024-02-17] MEDS ORDERED: Ondansetron PF 4 MG/2 ML Vial IVP PRN (20:13)
[2024-02-17 20:41] VITALS: BMI 30.2
[2024-02-17] MEDS: Heparin 5,000 UNITS/ML VIAL SC SCH (22:24)
[2024-02-17] MEDS: Carvedilol 6.25 MG TAB PO SCH (22:24)
[2024-02-18] MEDS: Acetaminophen 325 MG TAB PO PRN (02:50)
[2024-02-18 05:08] LABS: #Basophils 0.03 10x3/uL (0.0-0.2); %Basophils 0.5 % (0.0-1.0); %Eosinophils 1.7 % (0.0-10.0); %Lymphocytes 44.1 % (21.0-51.0); %Monocytes 10.5 % (0.0-10.0); %Neutrophils 42.7 % (42.0-75.0); Hematocrit 38.6 % (36.0-47.0); Hemoglobin 12.8 g/dL (12.0-16.0); Mean Corpuscular HGB CONC 33.2 g/dL (32.0-36.0); Mean Corpuscular Hemoglobin 29.4 pg (27.0-31.0); Mean Corpuscular Volume 88.5 fL (78.0-98.0); Platelet Count 288 10x3/uL (130-400); RBC Distribution Width 14.8 % (11.5-14.5); Red Blood Cell (RBC) Count 4.36 mill/uL (4.20-5.40)
[2024-02-18 05:26] LABS: Anion Gap 15 mmol/L (10-20); BUN (Urea Nitrogen) 13 mg/dL (9.8-20.1); Calc. Creatinine Clearance 73 mL/min (70-130); Carbon Dioxide 23 mmol/L (23-31); Chloride 106 mmol/L (98-107); Estimated GFR 72; Glucose 103 mg/dL (83-110); Potassium 3.5 mmol/L (3.5-5.1); Sodium 140 mmol/L (136-145)
[2024-02-18] MEDS: Valsartan 80 MG TAB PO SCH (08:50)
[2024-02-18] MEDS: Clopidogrel Bisulfate 75 MG TAB PO SCH (08:50)
[2024-02-18] MEDS: Aspirin 325 MG TAB PO SCH (08:50)
[2024-02-18] MEDS: Isosorbide Mononitrate 30 MG ER.TAB PO SCH (09:15)
[2024-02-18] MEDS ORDERED: Electrolyte Replacement Protocol FS PRN (11:45)
[2024-02-18] MEDS ORDERED: Electrolyte Replacement Protocol 1 EACH FS SCH (11:45)
[2024-02-18] MEDS: Morphine 4 MG/ML VIAL SLOW IVP PRN (12:10)
[2024-02-18] MEDS ORDERED: Regadenoson 0.4 MG/5 ML SYRINGE ONE (13:09)
[2024-02-18] MEDS: Potassium Chloride 20 MEQ TAB PO SCH (15:09)
[2024-02-18 17:05] LABS: Potassium 3.8 mmol/L (3.5-5.1)
[2024-02-18] MEDS: Carvedilol 6.25 MG TAB PO SCH (21:05)
[2024-02-18] MEDS: Enoxaparin 40 MG (0.4 mL) SYRINGE SC SCH (21:06)
[2024-02-19 08:38] VITALS: BP 140/79; TEMP 98.2
[2024-02-19] MEDS: Valsartan 80 MG TAB PO SCH (08:46)
== END 2024-02-19 11:59 | disposition home or self-care (01) ==
LOC: ERS 15:10 → 2SW 18:56
PROVIDERS: ADMIT Internal Medicine; ATTEND Family Medicine
DX: R07.89 Other chest pain (principal); I25.10 Atherosclerotic heart disease of native coronary artery without angina pectoris; I16.0 Hypertensive urgency; I10 Essential (primary) hypertension; E78.5 Hyperlipidemia, unspecified; Z95.1 Presence of aortocoronary bypass graft; Z79.899 Other long term (current) drug therapy; Z79.82 Long term (current) use of aspirin; Z88.8 Allergy status to other drugs, medicaments and biological substances; Z79.02 Long term (current) use of antithrombotics/antiplatelets; Z86.73 Personal history of transient ischemic attack (TIA), and cerebral infarction without residual deficits
CPT/HCPCS: 71045; 78452; 80048; 80053; 83735; 83880; 84132; 84484 ×2; 85025 ×2; 93005 ×2; 93017; 93971; 94760 ×2; 96372 ×2; 99285; A9502; G0378 ×4; J1644 ×2; J1650; J2270; J2785 ×2; 36415; 93010

== ENCOUNTER 2024-10-18 02:37 | Inpatient (IN) | payer MEDICARE ==
[2024-10-18 03:14] LABS: #Basophils 0.04 10x3/uL (0.0-0.2); %Basophils 0.4 % (0.0-1.0); %Eosinophils 0.6 % (0.0-10.0); %Lymphocytes 28.7 % (21.0-51.0); %Monocytes 6.5 % (0.0-10.0); %Neutrophils 63.5 % (42.0-75.0); Hematocrit 43.2 % (36.0-47.0); Hemoglobin 14.4 g/dL (12.0-16.0); Mean Corpuscular HGB CONC 33.3 g/dL (32.0-36.0); Mean Corpuscular Hemoglobin 29.4 pg (27.0-31.0); Mean Corpuscular Volume 88.2 fL (78.0-98.0); Mean Platelet Volume 10.7 fL (7.4-10.4); Platelet Count 299 10x3/uL (130-400); RBC Distribution Width 14.3 % (11.5-14.5)
[2024-10-18 03:46] LABS: Troponin I Less than 0.010 ng/mL (< 0.028)
[2024-10-18 05:03] LABS: Bacteria/HPF 1+ HPF (None Seen); Bilirubin Negative (Negative); Blood, Urine Negative (Negative); CAUTI Indications for Culture Alt mental st,lethar; Clarity Clear (Clear); Glucose, Urine (Dipstick) Normal (Negative); Ketone, Urine Negative (Negative); Leukocyte Negative Leu/uL (Negative); Nitrite Negative (Negative); Protein, Urine (Dipstick) Negative (Neg-Trace); RBC/HPF 0-3 HPF (0-3); Specific Gravity, Urine 1.011 (1.002-1.036); Squamous Epithelial 0-3 HPF (0-3); Urobilinogen Normal mg/dL (Less than 2); WBC/HPF 0-3 HPF (0-3)
[2024-10-18 05:04] LABS: Urine Culture Reflex No No
[2024-10-18 05:16] LABS: Acetaminophen Less than 10 mcg/mL (Less than 10); Alcohol Less than 10.0 mg/dL (Less than 10); Salicylate Less than 8.0 mg/dL (Less than 8.0)
[2024-10-18 05:18] LABS: ALT (SGPT) 13 U/L (Less than 34); AST (SGOT) 23 U/L (11-34); Albumin 4.2 g/dL (3.1-4.5); Alkaline Phosphatase 99 U/L (40-110); Anion Gap 19 mmol/L (10-20); BUN (Urea Nitrogen) 17 mg/dL (9.8-20.1); Bilirubin, Total 0.5 mg/dL (0.3-1.2); Calc. Creatinine Clearance 0 mL/min (70-130); Calcium 9.6 mg/dL (7.8-10.44); Carbon Dioxide 21 mmol/L (23-31); Chloride 105 mmol/L (98-107); Estimated GFR 46; Globulin 3.3 g/dL (2.4-3.5); Glucose 112 mg/dL (83-110); Potassium 3.8 mmol/L (3.5-5.1); Protein, Total 7.5 g/dL (5.8-8.1); Sodium 141 mmol/L (136-145)
[2024-10-18] MEDS ORDERED: Senokot S 8.6-50 MG TAB PO PRN (10:02)
[2024-10-18] MEDS ORDERED: Calcium Carbonate 500 MG ChewTAB PO PRN (10:02)
[2024-10-18] MEDS ORDERED: Ondansetron PF 4 MG/2 ML Vial IVP PRN (10:02)
[2024-10-18] MEDS ORDERED: Ondansetron ODT 4 MG TAB PO PRN (10:02)
[2024-10-18] MEDS ORDERED: Acetaminophen 650 MG Suppository PR PRN (10:02)
[2024-10-18] MEDS ORDERED: Clopidogrel Bisulfate 75 MG TAB ONE (11:12)
[2024-10-18] MEDS: Clopidogrel Bisulfate 75 MG TAB PO SCH (11:18)
[2024-10-18] MEDS: Atorvastatin Calcium 40 MG TAB PO SCH (20:42)
[2024-10-18] MEDS: Valsartan 80 MG TAB PO SCH (21:03)
[2024-10-18] MEDS: Carvedilol 6.25 MG TAB PO SCH (21:03)
[2024-10-19 06:01] LABS: #Basophils 0.03 10x3/uL (0.0-0.2); %Basophils 0.5 % (0.0-1.0); %Eosinophils 1.7 % (0.0-10.0); %Monocytes 9.9 % (0.0-10.0); %Neutrophils 39.7 % (42.0-75.0); Hematocrit 41.6 % (36.0-47.0); Hemoglobin 13.6 g/dL (12.0-16.0); Mean Corpuscular HGB CONC 32.7 g/dL (32.0-36.0); Mean Corpuscular Hemoglobin 29.1 pg (27.0-31.0); Mean Corpuscular Volume 88.9 fL (78.0-98.0); Mean Platelet Volume 11.1 fL (7.4-10.4); Platelet Count 293 10x3/uL (130-400); RBC Distribution Width 14.5 % (11.5-14.5); Red Blood Cell (RBC) Count 4.68 mill/uL (4.20-5.40)
[2024-10-19 06:30] LABS: Anion Gap 15 mmol/L (10-20); BUN (Urea Nitrogen) 15 mg/dL (9.8-20.1); Calc. Creatinine Clearance 58 mL/min (70-130); Calcium 9.1 mg/dL (7.8-10.44); Carbon Dioxide 26 mmol/L (23-31); Chloride 104 mmol/L (98-107); Estimated GFR 57; Glucose 105 mg/dL (83-110); Potassium 3.7 mmol/L (3.5-5.1); Sodium 141 mmol/L (136-145)
[2024-10-19 06:34] LABS: Bacteria/HPF 2+ HPF (None Seen); Bilirubin Negative (Negative); Blood, Urine Negative (Negative); Clarity Clear (Clear); Glucose, Urine (Dipstick) Normal (Negative); Ketone, Urine Negative (Negative); Leukocyte Negative Leu/uL (Negative); Nitrite Negative (Negative); Protein, Urine (Dipstick) Negative (Neg-Trace); RBC/HPF 0-3 HPF (0-3); Specific Gravity, Urine 1.009 (1.002-1.036); Squamous Epithelial 0-3 HPF (0-3); Urobilinogen Normal mg/dL (Less than 2); WBC/HPF 0-3 HPF (0-3); pH, Urine 5.5 (5.0-9.0)
[2024-10-19] MEDS: Aspirin Chewable 81 MG TAB PO SCH (09:03)
[2024-10-19] MEDS: Clopidogrel Bisulfate 75 MG TAB PO SCH (09:03)
[2024-10-19] MEDS: Acetaminophen 325 MG TAB PO PRN (09:07)
[2024-10-19] MEDS ORDERED: Furosemide 40 MG TAB PO PRN (12:58)
[2024-10-19] MEDS: Sodium Chloride 0.9% 1,000 ML IV SCH (14:18)
[2024-10-19] MEDS: Carvedilol 3.125 MG TAB PO SCH (20:21)
[2024-10-20 05:43] VITALS: BMI 27.7
[2024-10-20 07:12] LABS: #Basophils 0.03 10x3/uL (0.0-0.2); %Basophils 0.5 % (0.0-1.0); %Eosinophils 1.9 % (0.0-10.0); %Lymphocytes 45.9 % (21.0-51.0); %Monocytes 8.8 % (0.0-10.0); %Neutrophils 42.6 % (42.0-75.0); Hematocrit 38.4 % (36.0-47.0); Hemoglobin 12.4 g/dL (12.0-16.0); Mean Corpuscular HGB CONC 32.3 g/dL (32.0-36.0); Mean Corpuscular Hemoglobin 29.2 pg (27.0-31.0); Mean Corpuscular Volume 90.6 fL (78.0-98.0); Mean Platelet Volume 10.7 fL (7.4-10.4); Platelet Count 267 10x3/uL (130-400); RBC Distribution Width 14.5 % (11.5-14.5); Red Blood Cell (RBC) Count 4.24 mill/uL (4.20-5.40)
[2024-10-20 07:44] LABS: Anion Gap 13 mmol/L (10-20); BUN (Urea Nitrogen) 14 mg/dL (9.8-20.1); Calc. Creatinine Clearance 59 mL/min (70-130); Calcium 8.4 mg/dL (7.8-10.44); Carbon Dioxide 25 mmol/L (23-31); Chloride 109 mmol/L (98-107); Estimated GFR 60; Glucose 118 mg/dL (83-110); Sodium 143 mmol/L (136-145)
[2024-10-20 09:16] VITALS: BP 146/70; TEMP 97.7
== END 2024-10-20 11:55 | disposition home or self-care (01) | DRG 309 ==
LOC: ERS 02:37 → ERHOLD 07:06 → OBS 14:19 → OBSVTOIN 10-19 12:01
PROVIDERS: ADMIT Student in an Organized Health Care Education/Training Program; ATTEND Internal Medicine
DX: R00.1 Bradycardia, unspecified (principal); I50.32 Chronic diastolic (congestive) heart failure; E78.5 Hyperlipidemia, unspecified; I25.10 Atherosclerotic heart disease of native coronary artery without angina pectoris; I11.0 Hypertensive heart disease with heart failure; F32.A Depression, unspecified; Z88.8 Allergy status to other drugs, medicaments and biological substances; Z95.1 Presence of aortocoronary bypass graft; Z90.89 Acquired absence of other organs; Z90.710 Acquired absence of both cervix and uterus; Z98.41 Cataract extraction status, right eye; Z98.42 Cataract extraction status, left eye; Z98.890 Other specified postprocedural states
CPT/HCPCS: 36415; 70450; 80048; 80053; 80307; 81001; 84484; 85025; 87428; 93005; G0378

== ENCOUNTER 2025-06-05 12:32 | Outpatient (CLI) | payer MEDICARE | END 2025-06-05 12:33 | disposition home or self-care (01) | LOC: RAD 12:32 | PROVIDERS: ATTEND Physician Assistant | DX: R05.1 Acute cough (principal) | CPT/HCPCS: 71046 ==

== ENCOUNTER 2025-06-10 05:59 | Inpatient (IN) | payer MEDICARE ==
[2025-06-10 06:34] LABS: #Basophils 0.05 10x3/uL (0.0-0.2); #Eosinophils 0.15 10x3/uL (0.0-0.7); #Monocytes 0.60 10x3/uL (0.11-0.59); #Neutrophils 3.08 10x3/uL (1.40-6.50); %Basophils 0.7 % (0.0-1.0); %Eosinophils 2.2 % (0.0-10.0); %Lymphocytes 42.3 % (21.0-51.0); %Monocytes 8.9 % (0.0-10.0); %Neutrophils 45.6 % (42.0-75.0); Hematocrit 44.0 % (36.0-47.0); Hemoglobin 14.0 g/dL (12.0-16.0); Mean Corpuscular Hemoglobin 28.3 pg (27.0-31.0); Mean Corpuscular Volume 88.9 fL (78.0-98.0); Platelet Count 371 10x3/uL (130-400); Red Blood Cell (RBC) Count 4.95 mill/uL (4.20-5.40); White Blood Cell (WBC) Count 6.76 10x3/uL (4.8-10.8)
[2025-06-10 06:49] LABS: ALT (SGPT) 16 U/L (Less than 34); AST (SGOT) 25 U/L (11-34); Albumin 4.0 g/dL (3.1-4.5); Alkaline Phosphatase 101 U/L (40-110); Anion Gap 17 mmol/L (10-20); BUN (Urea Nitrogen) 12 mg/dL (9.8-20.1); Bilirubin, Total 0.3 mg/dL (0.3-1.2); Calc. Creatinine Clearance 0 mL/min (70-130); Calcium 9.4 mg/dL (7.8-10.44); Carbon Dioxide 21 mmol/L (23-31); Chloride 107 mmol/L (98-107); Globulin 3.5 g/dL (2.4-3.5); Glucose 107 mg/dL (83-110); Potassium 4.5 mmol/L (3.5-5.1); Sodium 140 mmol/L (136-145)
[2025-06-10] MEDS ORDERED: Nitroglycerin 2% Ointment 1 INCH/1 GM Packet ONE (07:16)
[2025-06-10] MEDS ORDERED: Furosemide 40 MG (4 mL) VIAL ONE (07:16)
[2025-06-10] MEDS ORDERED: Aspirin Chewable 81 MG TAB ONE (08:45)
[2025-06-10] MEDS ORDERED: Enoxaparin 80 MG (0.8 mL) SYRINGE ONE (08:45)
[2025-06-10] MEDS ORDERED: Melatonin 3 MG TAB PO PRN (09:20)
[2025-06-10] MEDS ORDERED: Calcium Carbonate 500 MG ChewTAB PO PRN (09:20)
[2025-06-10] MEDS ORDERED: Bisacodyl 10 MG SUPP PR PRN (09:20)
[2025-06-10] MEDS ORDERED: Senokot S 8.6-50 MG TAB PO PRN (09:20)
[2025-06-10] MEDS: Metoprolol Tartrate 5 MG (5 mL) VIAL IVP SCH (11:02)
[2025-06-10 14:20] VITALS: BMI 28.8
[2025-06-10] MEDS: Nitroglycerin 2% Ointment 1 INCH/1 GM Packet TOP SCH (16:20)
[2025-06-10] MEDS: Acetaminophen 325 MG TAB PO PRN (16:21)
[2025-06-10] MEDS ORDERED: Communication Order-Pharmacy FS SCH (20:00)
[2025-06-10] MEDS: Valsartan 80 MG TAB PO SCH (20:40)
[2025-06-10] MEDS: Enoxaparin 80 MG (0.8 mL) SYRINGE SC SCH (20:40)
[2025-06-10] MEDS: Carvedilol 3.125 MG TAB PO SCH (20:40)
[2025-06-11 05:22] LABS: #Basophils 0.05 10x3/uL (0.0-0.2); #Eosinophils 0.09 10x3/uL (0.0-0.7); #Monocytes 0.73 10x3/uL (0.11-0.59); #Neutrophils 2.50 10x3/uL (1.40-6.50); %Basophils 0.8 % (0.0-1.0); %Eosinophils 1.4 % (0.0-10.0); %Lymphocytes 47.2 % (21.0-51.0); %Monocytes 11.4 % (0.0-10.0); %Neutrophils 38.9 % (42.0-75.0); Hematocrit 42.7 % (36.0-47.0); Hemoglobin 13.3 g/dL (12.0-16.0); Mean Corpuscular Hemoglobin 28.4 pg (27.0-31.0); Mean Corpuscular Volume 91.0 fL (78.0-98.0); Platelet Count 340 10x3/uL (130-400); Red Blood Cell (RBC) Count 4.69 mill/uL (4.20-5.40); White Blood Cell (WBC) Count 6.42 10x3/uL (4.8-10.8)
[2025-06-11 05:38] LABS: Anion Gap 15 mmol/L (10-20); BUN (Urea Nitrogen) 20 mg/dL (9.8-20.1); Calc. Creatinine Clearance 59 mL/min (70-130); Calcium 9.1 mg/dL (7.8-10.44); Carbon Dioxide 25 mmol/L (23-31); Cardiac Risk 6.5 (Less than 4.5); Chloride 103 mmol/L (98-107); Cholesterol 208 mg/dl (< 200 Desired); Glucose 102 mg/dL (83-110); HDL Cholesterol 32 mg/dL (>60 Neg Risk); LDL Cholesterol, Calculated 127 mg/dL; Potassium 4.5 mmol/L (3.5-5.1); Sodium 138 mmol/L (136-145); Triglycerides 245 mg/dL (Less than 150)
[2025-06-11] MEDS: Aspirin Chewable 81 MG TAB PO SCH (06:00)
[2025-06-11] MEDS ORDERED: Nitroglycerin 50 MG/250 ML BOT 250 ML ONE (06:43)
[2025-06-11] MEDS ORDERED: Lidocaine 1% (PF) 30 ML VIAL ONE (06:43)
[2025-06-11] MEDS ORDERED: Heparin 10,000 UNITS/ 10 ML VIAL ONE (06:43)
[2025-06-11] MEDS ORDERED: Adenosine 6 mg (2 mL) VIAL ONE (06:43)
[2025-06-11] MEDS ORDERED: Ondansetron PF 4 MG/2 ML Vial ONE (07:23)
[2025-06-11] MEDS ORDERED: PHENYLEPHRINE-NS 100 MCG/ML 10 ML SYRINGE ONE (07:41)
[2025-06-11] MEDS ORDERED: EPINEPHrine 1 MG/10 ML Abboject SYRINGE ONE (07:41)
[2025-06-11] MEDS ORDERED: TICAGRELOR 90 MG TABLET ONE (08:50)
[2025-06-11] MEDS: Ondansetron PF 4 MG/2 ML Vial IVP PRN (09:29)
[2025-06-11] MEDS ORDERED: hydrALAZINE 20 MG/ML VIAL SLOW IVP PRN ×2 (10:59→11:00)
[2025-06-11] MEDS ORDERED: Iopamidol 370 76% 100 ML VIAL ONE (13:09)
[2025-06-11] MEDS ORDERED: Cyclobenzaprine 10 MG TAB PO PRN (15:32)
[2025-06-12 07:09] LABS: Anion Gap 11 mmol/L (10-20); BUN (Urea Nitrogen) 15 mg/dL (9.8-20.1); Calc. Creatinine Clearance 56 mL/min (70-130); Calcium 8.7 mg/dL (7.8-10.44); Carbon Dioxide 23 mmol/L (23-31); Chloride 109 mmol/L (98-107); Glucose 116 mg/dL (83-110); Potassium 4.4 mmol/L (3.5-5.1); Sodium 139 mmol/L (136-145)
[2025-06-12 07:33] LABS: #Basophils 0.04 10x3/uL (0.0-0.2); #Eosinophils 0.12 10x3/uL (0.0-0.7); #Monocytes 0.96 10x3/uL (0.11-0.59); #Neutrophils 4.70 10x3/uL (1.40-6.50); %Basophils 0.5 % (0.0-1.0); %Eosinophils 1.4 % (0.0-10.0); %Lymphocytes 31.8 % (21.0-51.0); %Monocytes 11.2 % (0.0-10.0); %Neutrophils 54.6 % (42.0-75.0); Hematocrit 39.3 % (36.0-47.0); Hemoglobin 12.6 g/dL (12.0-16.0); Mean Corpuscular Hemoglobin 28.4 pg (27.0-31.0); Mean Corpuscular Volume 88.5 fL (78.0-98.0); Platelet Count 328 10x3/uL (130-400); Red Blood Cell (RBC) Count 4.44 mill/uL (4.20-5.40); White Blood Cell (WBC) Count 8.59 10x3/uL (4.8-10.8)
[2025-06-12] MEDS: TICAGRELOR 90 MG TABLET PO SCH (09:14)
[2025-06-12 11:32] VITALS: TEMP 98.7
[2025-06-12 11:59] VITALS: BP 113/58
== END 2025-06-12 13:45 | disposition home or self-care (01) | DRG 321 ==
LOC: ERS 05:59 → OBS 09:07
PROVIDERS: ADMIT Internal Medicine; ATTEND Hospitalist
PROC: 027036Z Dilation of Coronary Artery, One Artery with Three Drug-eluting Intraluminal Devices, Percutaneous Approach (ICD-10-PCS; principal; 2025-06-11)
PROC: B2121ZZ Fluoroscopy of Single Coronary Artery Bypass Graft using Low Osmolar Contrast (ICD-10-PCS; 2025-06-11)
PROC: B2151ZZ Fluoroscopy of Left Heart using Low Osmolar Contrast (ICD-10-PCS; 2025-06-11)
PROC: 4A023N7 Measurement of Cardiac Sampling and Pressure, Left Heart, Percutaneous Approach (ICD-10-PCS; 2025-06-11)
PROC: B2111ZZ Fluoroscopy of Multiple Coronary Arteries using Low Osmolar Contrast (ICD-10-PCS; 2025-06-11)
PROC: 3E03329 Introduction of Other Anti-infective into Peripheral Vein, Percutaneous Approach (ICD-10-PCS; 2025-06-11)
PROC: B240ZZ3 Ultrasonography of Single Coronary Artery, Intravascular (ICD-10-PCS; 2025-06-11)
PROC: 3E033XZ Introduction of Vasopressor into Peripheral Vein, Percutaneous Approach (ICD-10-PCS; 2025-06-11)
DX: T82.855A Stenosis of coronary artery stent, initial encounter (principal); I21.4 Non-ST elevation (NSTEMI) myocardial infarction; I50.32 Chronic diastolic (congestive) heart failure; E78.5 Hyperlipidemia, unspecified; I25.10 Atherosclerotic heart disease of native coronary artery without angina pectoris; I16.0 Hypertensive urgency; I11.0 Hypertensive heart disease with heart failure; I08.3 Combined rheumatic disorders of mitral, aortic and tricuspid valves; F32.A Depression, unspecified; Z60.2 Problems related to living alone; Z95.1 Presence of aortocoronary bypass graft; Z95.5 Presence of coronary angioplasty implant and graft; Z88.8 Allergy status to other drugs, medicaments and biological substances; Z88.5 Allergy status to narcotic agent; Z79.82 Long term (current) use of aspirin; Z79.899 Other long term (current) drug therapy; Z86.73 Personal history of transient ischemic attack (TIA), and cerebral infarction without residual deficits; Z98.42 Cataract extraction status, left eye; Z98.41 Cataract extraction status, right eye; Z90.710 Acquired absence of both cervix and uterus; Z98.890 Other specified postprocedural states; I25.2 Old myocardial infarction; Y83.1 Surgical operation with implant of artificial internal device as the cause of abnormal reaction of the patient, or of later complication, without mention of misadventure at the time of the procedure
CPT/HCPCS: 36415; 71045; 80048; 80053; 80061; 83880; 84484; 85025; 85347; 92928; 92937; 92978; 93005; 93010; 93458; 93459; 93798; 93923; 94760; 97139; 99152; 99153; C1725; C1753; C1760; C1769; C1874; C1887; C1894; C1984; C9600; C9604; J0153; J0165; J0461; J1644; J1650; J1940; J2250; J7030; Q9967